=== PATIENT | male | born 1950 | race Caucasian/White ===

== ENCOUNTER → 2017-01-03 | Outpatient (CLI) | payer BC ==
[~2017-01-03] MED LIST: HYDR-5688 PO; OPTIRAY 320 IV PRN; OXYC1TAB3 PO
--- NOTE | 2017-01-03 16:32 | DIAGNOSTIC IMAGING REPORT ---
CT OF THE CHEST WITH IV CONTRAST CLINICAL HISTORY: Colorectal cancer. COMPARISON STUDY: Chest CT July 06, 2016. TECHNIQUE: Following IV administration of 115 mL of Optiray-320, helical axial images of the chest were obtained. Images were viewed in the axial, sagittal and coronal planes. IV contrast was administered without complication. FINDINGS: No enlarged axillary, mediastinal or hilar lymph nodes are present. The heart is at the upper limits of normal for size. Central airways are patent. There are calcified mediastinal and hilar lymph nodes. There are calcified granulomas within the lungs. No suspicious pulmonary nodules are present. There is no pneumothorax or pleural effusion. No suspicious osseous lesions are identified within the bony thorax. The abdomen and pelvis will be reported separately. IMPRESSION: No evidence of metastatic disease within the chest. Electronically signed by: Prashanth Eduardo M.D. 01/03/2017 4:31 PM Dictated Date/Time: 01/03/2017 4:19 PM
--- NOTE | 2017-01-03 16:43 | DIAGNOSTIC IMAGING REPORT ---
ABDOMEN AND PELVIS CT WITH IV AND ORAL CONTRAST CT DOSE: 2600.82 mGy.cm HISTORY: Postoperative evaluation colorectal carcinoma TECHNIQUE: Multiaxial CT images of the abdomen and pelvis were performed following the use of intravenous and oral contrast. COMPARISON STUDY: 07/06/2016 FINDINGS: Lung bases are clear. Calcified granuloma right base is unchanged. Liver spleen and pancreas are considered unremarkable. Kidneys enhance uniformly. No evidence for hydronephrosis. Findings of an unchanged midline colostomy. There is a right lower quadrant ileal conduit. Bowel pattern is considered nonobstructive. Chronic colonic diverticulosis is unchanged. The 6 cm presacral air-fluid collection persists. Postoperative changes to the perineal region are stable. There is no significant abdominal pelvic or inguinal adenopathy on the current exam. IMPRESSION: 1. No change from the prior study dated 07/06/2016. 2. The presacral complex collection/abscess is unchanged. 3. Stable postoperative changes including an ileal conduit, as well as midline colostomy is again noted. 4. No new or interval process. 5. Nonobstructive bowel pattern. 6. Stable chronic diverticulosis of the colon. Electronically signed by: David Dunham M.D. 01/03/2017 4:42 PM Dictated Date/Time: 01/03/2017 4:37 PM
== END | disposition home or self-care (01) ==
LOC: C.CTS 15:50
PROVIDERS: ATTEND Internal Medicine Hematology & Oncology
DX: C19 Malignant neoplasm of rectosigmoid junction (principal); K57.30 Diverticulosis of large intestine without perforation or abscess without bleeding; Z93.3 Colostomy status; Z98.890 Other specified postprocedural states

== ENCOUNTER → 2017-01-17 | Day surgery (SDC) | payer BC ==
[2017-01-16 11:01] VITALS: Ht 177.8 cm; Wt 111.4 kg
[~2017-01-17] VITALS: Ht 177.8 cm; Wt 111.4 kg
[~2017-01-17] MED LIST changes: -HYDR-5688 PO; +LIDOCAINE HCL 2% 2 ML VIAL (20MG/ML) ONE; -OPTIRAY 320 IV PRN; -OXYC1TAB3 PO; +PROPOFOL IV EMULSION 10 MG/ML 20 ML VIAL IV ONE; +SODIUM CHLORIDE 0.9% 500ML 500 ML IV ONE
--- NOTE | 2017-01-17 14:16 | Discharge Instructions ---
Endoscopy Patient Instructions Date / Procedure(s) Performed Jan 17, 2017. Colonoscopy Allergy Information Coded Allergies: Penicillins (Verified Allergy, Intermediate, HIVES, 01/16/17) Latex (Verified Allergy, Mild, RASH, 01/16/17) Shellfish (Verified Adverse Reaction, Intermediate, "EXTREME VOMITTING", ) Discharge Date / Findings Jan 17, 2017. polyp in cecum; sigmoid diverticulosis Colonoscopy via colostomy and bidirectional Provider Instructions Activity Restrictions - No exercising or heavy lifting for 24 hours. - Do not drink alcohol the day of the procedure. - Do not drive a car or operate machinery until the day after the procedure. - Do not make any important decisions or sign important papers in 24 hours after the procedure. Following Day: - Return to full activity which may include returning to work/school. Diet Start your diet with liquids and light foods (jello, soup, juice, toast). Then eat your usual diet if not nauseated. Treatment For Common After Affects For mild abdominal pain, bloating, or excessive gas: - Rest - Eat lightly - Lie on right side Follow-Up Information Follow-up with Dr. Zenaida Rueda as scheduled Anesthesia Information What You Should Know You have had a procedure that required some medicine to reduce anxiety and discomfort. This treatment is called moderate sedation. After receiving the treatment, you may be sleepy, but you will be able to breathe on your own. The effects of the treatment may last for several hours. Follow these instructions along with Activity/Diet recommendations noted above: * Do NOT do anything where dizziness or clumsiness would be dangerous. * Rest quietly at home today, then you can be up and about tomorrow. * Have a responsible person stay with you the rest of today. * You may have had an I.V. today. If so, you may take the dressing off later today. Recommendations Call your doctor if: * Trouble breathing * Continuous vomiting for more than 24 hours * Temperature above 101 degrees * Severe abdominal pain or bloating * Pain not relieved by pain medicine ordered * There is increased drainage or redness from any incision * A large amount of rectal bleeding greater than 2-3 tablespoons. (If you had a polyp/s removed or have hemorrhoids, a small amount of blood - from the rectum is to be expected.) * You have any unanswered questions or concerns. IN THE EVENT OF A SERIOUS EMERGENCY, GO TO THE NEAREST EMERGENCY ROOM Your discharge instructions were prepared by provider Bj Hernandez. Patient Instructions Signature Page Derrick Adorno Patient (or Guardian) Signature/Date: I have read and understand the instructions given to me by my caregivers. Caregiver/RN/Doctor Signature/Date: The above-named patient and/or guardian has received patient instructions on this date. + Original Patient Signature Page (only) stays with chart. Please make copy for patient.
--- NOTE | 2017-01-17 14:19 | Endo History and Physical ---
History & Physical Date of Service: Jan 17, 2017. Chief Complaint: history of colon cancer Referring Physician: Dr. Zenaida Rueda History of Present Illness hx CRC with colostomy. 1st evaluation since colon resection for CRC Past Medical History Cancer Past Surgical History Hx Cardiac Surgery: No Hx Internal Defibrillator: No Hx Pacemaker: No Hx Abdominal Surgery: Yes (ARTERY EMBOLIZATION IN PELVIS) Hx of Implantable Prosthesis: No Hx Post-Op Nausea and Vomiting: No Hx Cancer Surgery: Yes (COLON RESECTION WITH UROSTOMY, BLADDER REMOVAL, PROSTATECTOMY, COLOSTOMY) Hx Thoracic Surgery: No Hx Orthopedic: No Hx Urinary Tract Surgery: No Family History None Social History Smoking Status: Never Smoker Hx Substance Use: No Hx Alcohol Use: Yes (2+ GLASSES WINE/NIGHT) Allergies Coded Allergies: Penicillins (Verified Allergy, Intermediate, HIVES, 01/16/17) Latex (Verified Allergy, Mild, RASH, 01/16/17) Shellfish (Verified Adverse Reaction, Intermediate, "EXTREME VOMITTING", ) Current Medications Reported Home Medications Medications Dose Route/Sig Max Daily Dose Days Date Category No Active Prescriptions or Reported Medications Rx Vital Signs Weight (Kilograms): 111.36 Height (Feet): 5 Height (Inches): 10 Date Time Temp Pulse Resp B/P Pulse Ox O2 Delivery O2 Flow Rate FiO2 01/17/17 13:21 37.6 81 20 136/72 96 Room Air Physical Exam AAO x3 Nl s1s2 Lungs CTA Abd soft NT/ND + BS - CCE Assessment and Plan bidorectional colonoscopy via stoma vs colonoscopy via stoma and FS
--- NOTE | 2017-01-17 14:41 | GI REPORT ---
Procedure Date: 01/17/2017 1:48 PM Procedure: Colonoscopy Indications: High risk colon cancer surveillance: Personal history of colon cancer, Pt with CRC with resection Nov 2015. Complicated post procedure. Pt has a loop colosotomy in Transvers region with dital limb down to anus. Medicines: Propofol per Anesthesia Complications: No immediate complications. Estimated blood loss: Minimal. Estimated Blood Loss: Estimated blood loss was minimal. Procedure: Pre-Anesthesia Assessment: - Prior to the procedure, a History and Physical was performed, and patient medications and allergies were reviewed. The patient's tolerance of previous anesthesia was also reviewed. The risks and benefits of the procedure and the sedation options and risks were discussed with the patient. All questions were answered, and informed consent was obtained. Prior Anticoagulants: The patient has taken no previous anticoagulant or antiplatelet agents. ASA Grade Assessment: III - A patient with severe systemic disease. After reviewing the risks and benefits, the patient was deemed in satisfactory condition to undergo the procedure. After I obtained informed consent, the scope was passed under direct vision. Throughout the procedure, the patient's blood pressure, pulse, and oxygen saturations were monitored continuously. The scope was introduced through the transverse colostomy and advanced to the terminal ileum, with identification of the appendiceal orifice and IC valve. The colonoscopy was performed without difficulty. The patient tolerated the procedure well. The quality of the bowel preparation was fair. The scope was introduced through the transverse colostomy and advanced to the anus in antegrade fashion. Findings: A 4 mm polyp was found in the cecum. The polyp was sessile. The polyp was removed with a cold biopsy forceps. Resection and retrieval were complete. Estimated blood loss was minimal. Verification of patient identification for the specimen was done by the physician and cnc technician using the patient's name and medical record number. The proximal transverse colon, hepatic flexure, ascending colon, appendiceal orifice, ileocecal valve and ileum appeared normal. Multiple small and large-mouthed diverticula were found in the recto-sigmoid colon, in the sigmoid colon and in the descending colon. After retrograde advancement from the stoma to the TI. A second orifice was identified in the stoma that was directed distally. The scope was redirectled in this fashion. This was poorly prepped. Diverticulosis was identified. Hemorrhoids not identified. Impression: - One 4 mm polyp in the cecum, removed with a cold biopsy forceps. Resected and retrieved. - The proximal transverse colon, hepatic flexure, ascending colon, appendiceal orifice, ileocecal valve and terminal ileum are normal. - Diverticulosis in the recto-sigmoid colon, in the sigmoid colon and in the descending colon. Recommendation: - Patient has a contact number available for emergencies. The signs and symptoms of potential delayed complications were discussed with the patient. Return to normal activities tomorrow. Written discharge instructions were provided to the patient. - Discharge patient to home (ambulatory). - Await pathology results. - Repeat colonoscopy for surveillance based on pathology results. - Return to referring physician as previously scheduled. MD Bj Dalton MD 01/17/2017 2:40:00 PM This report has been signed electronically. Note Initiated On: 01/17/2017 1:48 PM I attest to the content of the Intraoperative Record and orders documented therein, exceptions below
--- NOTE | 2017-01-17 14:43 | Anesthesiology Progress Note ---
Anesthesia Post Op Note Date & Time Jan 17, 2017 at 14:42 Vital Signs Pain Intensity: 0 Vital Signs Past 12 Hours Date Time Temp Pulse Resp B/P Pulse Ox O2 Delivery O2 Flow Rate FiO2 01/17/17 14:37 68 20 104/66 96 Room Air 01/17/17 14:20 71 16 96/60 95 Room Air 01/17/17 13:21 37.6 81 20 136/72 96 Room Air Notes Mental Status: alert / awake / arousable, participated in evaluation Pt Amnestic to Procedure: Yes Nausea / Vomiting: adequately controlled Pain: adequately controlled Airway Patency, RR, SpO2: stable & adequate BP & HR: stable & adequate Hydration State: stable & adequate Anesthetic Complications: no major complications apparent
[2017-01-17 14:58] VITALS: BP 118/68; PULSE 78; O2SAT 96
== END | disposition home or self-care (01) ==
LOC: C.GI 12:53
PROVIDERS: ATTEND Internal Medicine Gastroenterology
DX: Z12.11 Encounter for screening for malignant neoplasm of colon (principal); Z85.038 Personal history of other malignant neoplasm of large intestine; D12.0 Benign neoplasm of cecum; K57.30 Diverticulosis of large intestine without perforation or abscess without bleeding; Z93.3 Colostomy status; Z98.890 Other specified postprocedural states; Z90.89 Acquired absence of other organs; Z88.0 Allergy status to penicillin; Z91.013 Allergy to seafood; Z91.040 Latex allergy status; E66.9 Obesity, unspecified; Z68.35 Body mass index [BMI] 35.0-35.9, adult